=== PATIENT | female | born 1985 | race African-American/Black ===

== ENCOUNTER 2020-06-19 07:15 | Emergency (ER) | payer MEDICAID ==
[~2020-06-19] VITALS: Ht 165.1 cm; Wt 79.0 kg
[~2020-06-19 07:15] MED LIST: PRENATAL VITAMINS
[2020-06-19] MEDS ORDERED: KETOROLAC 30MG/ML VIAL IM STA (08:22)
[2020-06-19] MEDS ORDERED: CYCLOBENZAPRINE 10MG TABLET PO ONE (08:30)
[2020-06-19 08:40] LABS: HEMOGLOBIN. 13.2 g/dL (12.0-16.0); MEAN CORPUSCULAR HEMOGLOBIN 28.1 pg (28.0-32.0); MEAN CORPUSCULAR VOLUME 83.3 fL (81.0-99.0); MEAN PLATELET VOLUME 6.8 fl (7.4-10.4); PLATELET 282 x1000/uL (130-400); RED BLOOD CELL COUNT 4.69 mill/uL (4.2-5.4); RED CELL DISTRIBUTION WIDTH 13.2 % (11.6-14.6)
[2020-06-19 08:44] LABS: CHLORIDE 104 mEq/L (98-107)
[2020-06-19 09:18] LABS: PLATELET ESTIMATE NORMAL
[2020-06-19 09:23] LABS: CLARITY URINE CLEAR (CLEAR); COLOR URINE YELLOW (YELLOW); KETONES URINE TRACE (NEGATIVE); LEUKOCYTE ESTERASE URINE NEGATIVE (NEGATIVE); NITRITE URINE NEGATIVE (NEGATIVE); OCCULT BLOOD URINE 1+ (NEGATIVE); PROTEIN URINE NEGATIVE (NEGATIVE); SPECIFIC GRAVITY URINE 1.023 (1.005-1.030); UROBILINOGEN URINE 0.2 E.U./dL (0.2-1.0)
[2020-06-19 09:25] VITALS: BP 100/64
== END 2020-06-19 09:50 | disposition home or self-care (01) ==
LOC: ER 07:15
DX: M79.10 Myalgia, unspecified site (principal); M54.5 Low back pain
CPT/HCPCS: 36415; 71045; 80053; 81003; 81025; 85025; 93005; 96372; 99285; J1885

== ENCOUNTER 2020-06-21 03:57 | Emergency (ER) | payer MEDICAID ==
[~2020-06-21] VITALS: Ht 167.6 cm; Wt 56.0 kg
[2020-06-21] MEDS ORDERED: SODIUM CHLORIDE 0.9% 1,000 ML IV ONE ×2 (04:41→06:35)
[2020-06-21] MEDS ORDERED: ACETAMINOPHEN 500MG TABLET PO ONE (04:45)
[2020-06-21 05:14] LABS: BASOPHILS % 0.1 % (0.0-2.0); EOSINOPHILS % 0.3 % (0.0-5.0); HEMATOCRIT. 38.1 % (36.0-48.0); HEMOGLOBIN. 12.8 g/dL (12.0-16.0); LYMPHOCYTES % 8.8 % (20.0-50.0); MEAN CORPUSCULAR HEMOGLOBIN 28.2 pg (28.0-32.0); MEAN CORPUSCULAR VOLUME 83.5 fL (81.0-99.0); MEAN PLATELET VOLUME 6.8 fl (7.4-10.4); MONOCYTES % 8.9 % (2.0-8.0); NEUTROPHILS % 81.9 % (40.0-76.0); PLATELET 238 x1000/uL (130-400); RED BLOOD CELL COUNT 4.56 mill/uL (4.2-5.4); RED CELL DISTRIBUTION WIDTH 13.1 % (11.6-14.6)
[2020-06-21 05:16] LABS: CLARITY URINE TURBID (CLEAR); COLOR URINE ORANGE (YELLOW); KETONES URINE TRACE (NEGATIVE); LEUKOCYTE ESTERASE URINE TRACE (NEGATIVE); NITRITE URINE NEGATIVE (NEGATIVE); OCCULT BLOOD URINE 2+ (NEGATIVE); PROTEIN URINE 1+ (NEGATIVE); SPECIFIC GRAVITY URINE 1.031 (1.005-1.030); UROBILINOGEN URINE 0.2 E.U./dL (0.2-1.0)
[2020-06-21 05:23] LABS: CHLORIDE 108 mEq/L (98-107)
[2020-06-21] MEDS ORDERED: KETOROLAC 30MG/ML VIAL IV STA (06:35)
[2020-06-21 08:34] VITALS: BP 102/75
== END 2020-06-21 08:42 | disposition home or self-care (01) ==
LOC: ER 04:09
DX: M79.18 Myalgia, other site (principal); R19.7 Diarrhea, unspecified; I49.9 Cardiac arrhythmia, unspecified
CPT/HCPCS: 36415; 80053; 81003; 81025; 83690; 85025; 93005; 96361; 96374; 99285; J1885; J7030

== ENCOUNTER 2020-09-24 00:26 | Emergency (ER) | payer MEDICAID ==
[~2020-09-24] VITALS: Ht 185.4 cm; Wt 58.0 kg
[2020-09-24] MEDS ORDERED: LEVOFLOXACIN 750MG PREMIX 150 ML IV ONE (01:00)
[2020-09-24] MEDS ORDERED: SODIUM CHLORIDE 0.9% 1,000 ML IV ONE (01:00)
[2020-09-24] MEDS ORDERED: ONDANSETRON HCL 4MG/2ML INJ IV STA (01:00)
[2020-09-24 02:03] LABS: BASOPHILS % 0.1 % (0.0-2.0); EOSINOPHILS % 0.3 % (0.0-5.0); HEMATOCRIT. 38.5 % (36.0-48.0); HEMOGLOBIN. 13.1 g/dL (12.0-16.0); LYMPHOCYTES % 15.9 % (20.0-50.0); MEAN CORPUSCULAR HEMOGLOBIN 28.2 pg (28.0-32.0); MEAN CORPUSCULAR VOLUME 82.5 fL (81.0-99.0); MEAN PLATELET VOLUME 7.2 fl (7.4-10.4); MONOCYTES % 4.6 % (2.0-8.0); NEUTROPHILS % 79.1 % (40.0-76.0); PLATELET 357 x1000/uL (130-400); RED BLOOD CELL COUNT 4.66 mill/uL (4.2-5.4); RED CELL DISTRIBUTION WIDTH 13.3 % (11.6-14.6)
[2020-09-24 02:11] LABS: CHLORIDE 106 mEq/L (98-107)
[2020-09-24 02:17] LABS: HCG SCREEN NEGATIVE
[2020-09-24 02:51] LABS: CLARITY URINE TURBID (CLEAR); COLOR URINE DARK YELLOW (YELLOW); KETONES URINE 1+ (NEGATIVE); LEUKOCYTE ESTERASE URINE TRACE (NEGATIVE); NITRITE URINE NEGATIVE (NEGATIVE); OCCULT BLOOD URINE NEGATIVE (NEGATIVE); PROTEIN URINE TRACE (NEGATIVE); SPECIFIC GRAVITY URINE 1.029 (1.005-1.030)
[2020-09-24 03:30] VITALS: BP 117/74
== END 2020-09-24 03:47 | disposition home or self-care (01) ==
LOC: ER 00:26
DX: N12 Tubulo-interstitial nephritis, not specified as acute or chronic (principal); Z20.828 Contact with and (suspected) exposure to other viral communicable diseases
CPT/HCPCS: 36415; 71045; 80053; 81003; 83605; 83690; 84703; 85025; 85379; 87040; 87086; 96365; 96375; 99284; J1956; J2405; J7030

== ENCOUNTER 2020-10-26 08:46 | Emergency (ER) | payer MEDICAID ==
[~2020-10-26] VITALS: Ht 167.6 cm; Wt 59.0 kg
[2020-10-26 08:51] VITALS: BP 121/89
[2020-10-26] MEDS ORDERED: KETOROLAC 30MG/ML VIAL IM ONE (09:00)
== END 2020-10-26 10:03 | disposition home or self-care (01) ==
LOC: ER 08:49
DX: M79.604 Pain in right leg (principal); M79.669 Pain in unspecified lower leg; F17.200 Nicotine dependence, unspecified, uncomplicated; Z98.890 Other specified postprocedural states
CPT/HCPCS: 81025; 93971; 96372; 99284; J1885

== ENCOUNTER 2020-11-11 00:47 | Emergency (ER) | payer MEDICAID ==
[~2020-11-11] VITALS: Ht 160 cm; Wt 58.0 kg
[2020-11-11] MEDS ORDERED: KETOROLAC 60MG/2ML VIAL IM STA (01:17)
[2020-11-11] MEDS ORDERED: CYCLOBENZAPRINE 10MG TABLET PO ONE (01:30)
[2020-11-11 01:40] VITALS: BP 120/87
[2020-11-11 01:41] LABS: COLOR URINE YELLOW (YELLOW); KETONES URINE NEGATIVE (NEGATIVE); LEUKOCYTE ESTERASE URINE NEGATIVE (NEGATIVE); NITRITE URINE NEGATIVE (NEGATIVE); OCCULT BLOOD URINE NEGATIVE (NEGATIVE); PROTEIN URINE NEGATIVE (NEGATIVE); UROBILINOGEN URINE 0.2 E.U./dL (0.2-1.0)
[2020-11-11 01:42] LABS: CLARITY URINE CLEAR (CLEAR)
== END 2020-11-11 02:18 | disposition home or self-care (01) ==
LOC: ER 00:47
DX: M54.41 Lumbago with sciatica, right side (principal)
CPT/HCPCS: 81003; 81025; 96372; 99283; J1885

== ENCOUNTER 2021-05-10 20:47 | Emergency (ER) | payer MEDICAID ==
[~2021-05-10] VITALS: Ht 160 cm; Wt 65.4 kg
[2021-05-11] MEDS ORDERED: ONDANSETRON HCL 4MG/2ML INJ IV STA (00:43)
[2021-05-11] MEDS ORDERED: MORPHINE SULFATE 4 MG/ML CPJ (NOT FOR IM USE) IV STA (00:43)
[2021-05-11] MEDS ORDERED: SODIUM CHLORIDE 0.9% 1,000 ML IV ONE (00:45)
[2021-05-11 01:02] LABS: BASOPHILS % 0.1 % (0.0-2.0); EOSINOPHILS % 0.8 % (0.0-5.0); HEMOGLOBIN. 12.9 g/dL (12.0-16.0); LYMPHOCYTES % 21.9 % (20.0-50.0); MEAN CORPUSCULAR HEMOGLOBIN 28.2 pg (28.0-32.0); MEAN CORPUSCULAR VOLUME 81.2 fL (81.0-99.0); MEAN PLATELET VOLUME 6.8 fl (7.4-10.4); MONOCYTES % 5.9 % (2.0-8.0); NEUTROPHILS % 71.3 % (40.0-76.0); PLATELET 315 x1000/uL (130-400); RED BLOOD CELL COUNT 4.56 mill/uL (4.2-5.4)
[2021-05-11 01:04] LABS: CLARITY URINE CLEAR (CLEAR); COLOR URINE YELLOW (YELLOW); KETONES URINE NEGATIVE (NEGATIVE); LEUKOCYTE ESTERASE URINE NEGATIVE (NEGATIVE); NITRITE URINE NEGATIVE (NEGATIVE); OCCULT BLOOD URINE NEGATIVE (NEGATIVE); PH URINE 7.5 (4.5-8.0); PROTEIN URINE NEGATIVE (NEGATIVE); SPECIFIC GRAVITY URINE 1.008 (1.005-1.030); UROBILINOGEN URINE 0.2 E.U./dL (0.2-1.0)
[2021-05-11 01:08] LABS: CHLORIDE 107 mEq/L (98-107)
[2021-05-11] MEDS ORDERED: MORPHINE SULFATE 4 MG/ML CPJ (NOT FOR IM USE) IV ONE (05:15)
[2021-05-11] MEDS ORDERED: ONDANSETRON HCL 4MG/2ML INJ IV ONE (05:15)
[2021-05-11] MEDS ORDERED: IOHEXOL-300 100 ML BOTTLE ONE (05:37)
[2021-05-11] MEDS ORDERED: MAGNESIUM CITRATE 300ML SOLUTION PO ONE (06:45)
[2021-05-11] MEDS ORDERED: ACET-2708 MT (07:01)
[2021-05-11] MEDS ORDERED: NAPR-1176 MT (07:01)
[2021-05-11] MEDS ORDERED: DOCU-138 MT (07:01)
[2021-05-11] MEDS ORDERED: HYDR-4001 MT (09:25)
[2021-05-11 10:14] VITALS: BP 118/76
== END 2021-05-11 10:23 | disposition home or self-care (01) ==
LOC: ER 20:47
DX: N94.89 Other specified conditions associated with female genital organs and menstrual cycle (principal)
CPT/HCPCS: 36415; 74177; 76830; 76856; 80053; 81003; 83690; 85025; 96374; 96375; 96376; 99285; J2270; J2405; J7030; Q9967; Z7610

== ENCOUNTER 2021-11-20 07:51 | Emergency (ER) | payer MEDICAID ==
[~2021-11-20] VITALS: Ht 160 cm; Wt 62.0 kg
[~2021-11-20 07:51] MED LIST changes: +ACET-2708 MT; +DOCU-138 MT; +HYDR-4001 MT; +NAPR-1176 MT
[2021-11-20 08:02] VITALS: BP 110/6
[2021-11-20] MEDS ORDERED: FAMOTIDINE 20MG TABLET PO SCH (08:30)
[2021-11-20] MEDS ORDERED: DIPHENHYDRAMINE 50MG/ML VIAL IM ONE (08:30)
[2021-11-20] MEDS ORDERED: B50 MT (09:00)
[2021-11-21] MEDS ORDERED: P50 PO (08:58)
== END 2021-11-20 09:11 | disposition home or self-care (01) ==
LOC: ER 07:51
DX: T78.49XA Other allergy, initial encounter (principal); R21 Rash and other nonspecific skin eruption; X58.XXXA Exposure to other specified factors, initial encounter
CPT/HCPCS: 96372; 99283; J1200

== ENCOUNTER 2021-11-21 08:30 | Emergency (ER) | payer MEDICAID ==
[~2021-11-21] VITALS: Ht 165.1 cm; Wt 62.0 kg
[~2021-11-21 08:30] MED LIST changes: +B50 MT
[2021-11-21 08:43] VITALS: BP 125/73
[2021-11-21] MEDS ORDERED: P50 PO (08:58)
[2021-11-21] MEDS ORDERED: FAMOTIDINE 20MG TABLET PO ONE (09:00)
[2021-11-21] MEDS ORDERED: PREDNISONE 20MG TABLET PO ONE (09:00)
== END 2021-11-21 09:16 | disposition home or self-care (01) ==
LOC: ER 08:30
DX: L50.9 Urticaria, unspecified (principal)
CPT/HCPCS: 99283; J7512

== ENCOUNTER 2021-11-24 10:40 | Emergency (ER) | payer MEDICAID ==
[~2021-11-24] VITALS: Ht 160 cm; Wt 58.0 kg
[~2021-11-24 10:40] MED LIST changes: +P50 PO
[2021-11-24 11:05] VITALS: BP 102/58
[2021-11-24] MEDS ORDERED: DIPHENHYDRAMINE 25MG CAPSULE PO ONE (11:15)
[2021-11-24] MEDS ORDERED: FAMOTIDINE 20MG TABLET PO ONE (11:15)
[2021-11-24] MEDS ORDERED: FAMO-135 MT (12:50)
== END 2021-11-24 12:57 | disposition home or self-care (01) ==
LOC: ER 10:40
DX: L23.9 Allergic contact dermatitis, unspecified cause (principal)
CPT/HCPCS: 99283; Q0163

== ENCOUNTER 2024-01-28 21:16 | Emergency (ER) | payer MEDICAID ==
[~2024-01-28] VITALS: Ht 167.6 cm; Wt 60.0 kg
[~2024-01-28 21:16] MED LIST changes: +FAMO-135 MT
[2024-01-28 21:55] VITALS: O2SAT 99
[2024-01-29 00:56] LABS: CLARITY URINE CLEAR (CLEAR); COLOR URINE YELLOW (YELLOW); GLUCOSE URINE NEGATIVE (NEGATIVE); KETONES URINE 1+ (NEGATIVE); LEUKOCYTE ESTERASE URINE NEGATIVE (NEGATIVE); NITRITE URINE NEGATIVE (NEGATIVE); OCCULT BLOOD URINE TRACE (NEGATIVE); PH URINE 5.5 (4.5-8.0); PROTEIN URINE NEGATIVE (NEGATIVE); SPECIFIC GRAVITY URINE 1.018 (1.005-1.030); UROBILINOGEN URINE 0.2 E.U./dL (0.2-1.0)
[2024-01-29 01:06] LABS: BASOPHILS % 0.2 % (0.0-2.0); EOSINOPHILS % 0.3 % (0.0-5.0); HEMATOCRIT. 35.3 % (36.0-48.0); HEMOGLOBIN. 12.1 g/dL (12.0-16.0); LYMPHOCYTES % 12.1 % (20.0-50.0); MEAN CORPUSCULAR HEMOGLOBIN 29.3 pg (28.0-32.0); MEAN CORPUSCULAR HGB CONC 34.4 g/dL (31.0-37.0); MEAN CORPUSCULAR VOLUME 85.4 fL (81.0-99.0); MEAN PLATELET VOLUME 6.7 fl (7.4-10.4); MONOCYTES % 8.7 % (2.0-8.0); NEUTROPHILS % 78.7 % (40.0-76.0); PLATELET 263 x1000/uL (130-400); RED BLOOD CELL COUNT 4.13 mill/uL (4.2-5.4); RED CELL DISTRIBUTION WIDTH 13.6 % (11.6-14.6); WHITE BLOOD COUNT 6.5 x1000/uL (4.5-11.0)
[2024-01-29 01:11] LABS: CHLORIDE 106 mEq/L (98-107); POTASSIUM 3.9 mEq/L (3.5-5.1); SODIUM 136 mEq/L (136-145)
[2024-01-29 01:12] LABS: CALCIUM 8.9 mg/dL (8.7-10.4); CARBON DIOXIDE 24 mEq/L (21-32)
[2024-01-29 01:14] LABS: HCG SCREEN NEGATIVE
[2024-01-29 01:17] LABS: CREATININE 0.6 mg/dL (0.6-1.0); GLUCOSE 89 mg/dL (70-105); UREA NITROGEN BLOOD 8 mg/dL (9-23)
[2024-01-29 01:19] LABS: ALANINE AMINOTRANSFERASE 14 IU/L (10-49); ALBUMIN 4.6 g/dL (3.2-4.8); ASPARTATE AMINOTRANSFERASE 17 IU/L (<34)
[2024-01-29 01:20] LABS: BILIRUBIN TOTAL 0.4 mg/dL (0.1-1.0); PROTEIN TOTAL 7.1 g/dL (6.0-8.3)
[2024-01-29] MEDS: KETOROLAC 30MG/ML VIAL IM ONE (01:30)
[2024-01-29] MEDS ORDERED: IBUP-2029 MT (02:17)
[2024-01-29] MEDS ORDERED: ACET325T52 MT (02:56)
[2024-01-29] MEDS: ACETAMINOPHEN 325MG TABLET PO ONE (03:15)
[2024-01-29 03:19] VITALS: BP 110/56; PULSE 90; RESP 14; TEMP 99
[2024-01-29 03:24] LABS: BACTERIA URINE NONE SEEN; RBC URINE 0-2 /hpf (0-2); SQUAMOUS EPITHELIAL CELL URINE FEW /lpf (RARE/1+); WBC URINE 0-2 /hpf (0-2)
== END 2024-01-29 03:19 | disposition home or self-care (01) ==
LOC: ER 21:23
DX: R30.0 Dysuria (principal); M79.10 Myalgia, unspecified site; Z79.899 Other long term (current) drug therapy; Z98.890 Other specified postprocedural states
CPT/HCPCS: 81025; 99284; 80053; 81003; 84703; 87430; 83690; 85025; 36415; 74176; J1885; Z7610

== ENCOUNTER 2024-07-28 10:37 | Emergency (ER) | payer MEDICAID ==
[~2024-07-28] VITALS: Ht 160 cm; Wt 58.9 kg
[~2024-07-28 10:37] MED LIST changes: +ACET325T52 MT
[2024-07-28 10:49] VITALS: BP 111/65; PULSE 62; RESP 16; TEMP 98.4; O2SAT 100
[2024-07-28] MEDS: HYDROCODONE/ACETAMINOPHEN 5/325MG TABLET PO STA (12:40)
[2024-07-28 13:34] LABS: CLARITY URINE CLOUDY (CLEAR); COLOR URINE YELLOW (YELLOW); GLUCOSE URINE NEGATIVE (NEGATIVE); KETONES URINE NEGATIVE (NEGATIVE); LEUKOCYTE ESTERASE URINE NEGATIVE (NEGATIVE); NITRITE URINE NEGATIVE (NEGATIVE); OCCULT BLOOD URINE NEGATIVE (NEGATIVE); PROTEIN URINE NEGATIVE (NEGATIVE); SPECIFIC GRAVITY URINE 1.021 (1.005-1.030); UROBILINOGEN URINE 0.2 E.U./dL (0.2-1.0)
[2024-07-28] MEDS ORDERED: ERYT1OIN6 RIGHTEYE (14:01)
[2024-07-28] MEDS ORDERED: SULF1TAB48 MT (14:01)
[2024-07-28] MEDS ORDERED: NAPR-681 PO (14:01)
[2024-07-28] MEDS ORDERED: CEPH500C2 MT (14:01)
[2024-07-28 15:37] LABS: MUCUS URINE 3+ /lpf (< = 2+); SQUAMOUS EPITHELIAL CELL URINE 3+ /lpf (RARE/1+)
[2024-07-28 15:38] LABS: BACTERIA URINE NONE SEEN
[2024-07-28 15:40] LABS: RBC URINE 0-2 /hpf (0-2); WBC URINE 0-2 /hpf (0-2)
== END 2024-07-28 14:16 | disposition home or self-care (01) ==
LOC: ER 10:37
DX: H00.011 Hordeolum externum right upper eyelid (principal); M47.817 Spondylosis without myelopathy or radiculopathy, lumbosacral region; Z88.6 Allergy status to analgesic agent; Z79.899 Other long term (current) drug therapy
CPT/HCPCS: 72100; 81003; 81025; 99283

== ENCOUNTER 2025-05-02 18:36 | Emergency (ER) | payer MEDICAID ==
[~2025-05-02] VITALS: Ht 160 cm; Wt 65.0 kg
[~2025-05-02 18:36] MED LIST changes: +ACET-3800 MT; -ACET325T52 MT; +CEPH500C2 MT; +ERYT1OIN6 RIGHTEYE; +NAPR-681 PO; +SULF1TAB48 MT
[2025-05-02 19:00] VITALS: O2SAT 100
[2025-05-02] MEDS: KETOROLAC 30MG/ML VIAL IM ONE (21:50)
[2025-05-02] MEDS: CYCLOBENZAPRINE 10MG TABLET PO ONE (21:51)
[2025-05-02] MEDS ORDERED: NAPR-1176 MT (22:23)
[2025-05-02] MEDS ORDERED: CYCL10TA21 MT (22:23)
[2025-05-02 23:12] VITALS: BP 110/72; PULSE 65; RESP 20; TEMP 36.8; O2SAT 100
== END 2025-05-02 23:11 | disposition home or self-care (01) ==
LOC: ER 18:36
DX: M54.2 Cervicalgia (principal); M25.512 Pain in left shoulder; Z79.1 Long term (current) use of non-steroidal anti-inflammatories (NSAID); Z79.52 Long term (current) use of systemic steroids; Z79.899 Other long term (current) drug therapy
CPT/HCPCS: 81025; 96372; 99283; J1885; Z7610

== ENCOUNTER 2025-05-04 01:25 | Emergency (ER) | payer MEDICAID ==
[~2025-05-04] VITALS: Ht 165.1 cm; Wt 66.0 kg
[~2025-05-04 01:25] MED LIST changes: +CYCL10TA21 MT
[2025-05-04 01:26] VITALS: O2SAT 99
[2025-05-04] MEDS: ACETAMINOPHEN 500MG TABLET PO ONE (02:34)
[2025-05-04] MEDS: LIDOCAINE 5% PATCH TOP SCH (02:35)
[2025-05-04] MEDS ORDERED: GABA-529 MT (03:06)
[2025-05-04] MEDS ORDERED: DEXAMETHASONE 4MG/ML 1ML VIAL IV ONE (03:15)
[2025-05-04 03:24] VITALS: BP 121/71; PULSE 80; RESP 12; TEMP 36.8; O2SAT 100
[2025-05-04] MEDS: DEXAMETHASONE 4MG/ML 1ML VIAL IM ONE (03:25)
== END 2025-05-04 03:34 | disposition home or self-care (01) ==
LOC: ER 02:12
DX: M54.2 Cervicalgia (principal); Z79.899 Other long term (current) drug therapy
CPT/HCPCS: 99283; 96372; J1100